=== PATIENT | male | born 1980 | race Two or more races ===

== ENCOUNTER 2024-03-29 11:21 | Emergency (ER) | payer OTHER ==
[~2024-03-29] VITALS: Ht 167.6 cm; Wt 74.8 kg
[2024-03-29] MEDS ORDERED: COZAAR25 MG (12:43)
[2024-03-29] MEDS ORDERED: RAYOS5 MG (12:43)
[2024-03-29] MEDS ORDERED: CELLCEPT500 MG (12:43)
[2024-03-29] MEDS ORDERED: NORFLEX100MG PO (12:52)
[2024-03-29] MEDS ORDERED: ORPHENADRINE CITRATE 30 MG/ML AMPUL IM ONE (13:00)
== END 2024-03-29 13:05 | disposition home or self-care (01) ==
LOC: ER 11:21
DX: M62.830 Muscle spasm of back (principal); Z88.8 Allergy status to other drugs, medicaments and biological substances; Z88.6 Allergy status to analgesic agent
CPT/HCPCS: 96372; 99282; J2360

== ENCOUNTER 2024-04-13 10:23 | Emergency (ER) | payer OTHER ==
[~2024-04-13] VITALS: Ht 167.6 cm; Wt 74.4 kg
[~2024-04-13 10:23] MED LIST: CELLCEPT500 MG; COZAAR25 MG; NORFLEX100MG PO; RAYOS5 MG
[2024-04-13] MEDS ORDERED: ONDANSETRON HCL 2 MG/ML VIAL IM ONE (12:15)
[2024-04-13] MEDS ORDERED: FAMOTIDINE/PF 20 MG/2 ML VIAL IV ONE (12:15)
[2024-04-13 13:17] LABS: HEMATOCRIT 44.6 % (39.0-48.0); HEMOGLOBIN 15.1 g/dL (13-16.00); MEAN CELL VOLUME 92.1 fL (80.0-100.00); MEAN CORPUSCULAR HEMOGLOBIN 31.2 pg (27.00-32.0); MEAN CORPUSCULAR HGB CONC 33.8 g/dl (32.0-36.0); PLATELET COUNT 274 K/uL (150-450); RED BLOOD COUNT 4.84 M/uL (4.00-6.00); RED CELL DISTRIBUTION WIDTH 13.4 % (11.5-14.5)
[2024-04-13 13:32] LABS: URINE APPEARANCE Clear; URINE BILIRRUBIN Negative (NEGATIVE); URINE BLOOD Moderate; URINE COLOR Yellow; URINE GLUCOSE Negative (NEGATIVE); URINE KETONE Negative (NEGATIVE); URINE LEUKOCYTE Negative; URINE NITRATE Negative; URINE UROBILINOGEN 0.2 E.U./dl
[2024-04-13 13:33] LABS: URINE BACTERIA 15.9 uL (0.0-1933); URINE EPITHELIAL CELLS 1.7 uL (0.0-38.8); URINE RBC 6.1 uL (0.0-20.8)
[2024-04-13 13:40] LABS: URINE CAST 0.14 uL (0.0-1.40); URINE PROTEIN 100 (NEGATIVE)
[2024-04-13 13:49] LABS: ALBUMIN 4.1 gm/dL (3.4-5.0); BILIRUBIN TOTAL 0.39 mg/dL (0.3-1.2); CALCIUM 9.3 mg/dL (8.5-10.1); CREATININE SERUM 1.04 mg/dL (0.70-1.30); GFR 77.94; GLOBULINA 3.7 G/DL (2.4-3.5); POTASSIUM 5.88 mEq/L (3.5-5.1); TOTAL PROTEIN 7.8 gm/dL (6.4-8.2)
== END 2024-04-13 14:25 ==
LOC: ER 10:25
PROVIDERS: General Practice
DX: J10.1 Influenza due to other identified influenza virus with other respiratory manifestations (principal); Z93.2 Ileostomy status; Z88.6 Allergy status to analgesic agent; K50.90 Crohn's disease, unspecified, without complications; Z20.822 Contact with and (suspected) exposure to COVID-19
CPT/HCPCS: 36415; 96365; 96372; 99282; J2405; J3490

== ENCOUNTER 2024-04-24 20:29 | Emergency (ER) | payer OTHER ==
[~2024-04-24] VITALS: Ht 167.6 cm; Wt 74.4 kg
[2024-04-24 20:42] VITALS: BP 117/81; O2SAT 97
[2024-04-24 23:10] LABS: HEMATOCRIT 41.9 % (39.0-48.0); HEMOGLOBIN 14.2 g/dL (13-16.00); MEAN CELL VOLUME 92.3 fL (80.0-100.00); MEAN CORPUSCULAR HEMOGLOBIN 31.2 pg (27.00-32.0); MEAN CORPUSCULAR HGB CONC 33.8 g/dl (32.0-36.0); PLATELET COUNT 218 K/uL (150-450); RED BLOOD COUNT 4.53 M/uL (4.00-6.00); RED CELL DISTRIBUTION WIDTH 12.5 % (11.5-14.5)
[2024-04-25] MEDS ORDERED: PHENAGIL TABLE1 EACH PO (02:45)
[2024-04-25] MEDS ORDERED: ALBUTEROL2.5 MG/3 M IH (02:45)
[2024-04-25] MEDS ORDERED: ZYNCOF 20-400120 ML PO (02:45)
== END 2024-04-25 02:54 ==
LOC: ER 20:31
PROVIDERS: Preventive Medicine Public Health & General Preventive Medicine
DX: R53.81 Other malaise (principal); J10.1 Influenza due to other identified influenza virus with other respiratory manifestations; Z20.822 Contact with and (suspected) exposure to COVID-19; Z88.6 Allergy status to analgesic agent

== ENCOUNTER 2025-04-10 15:17 | Emergency (ER) | payer OTHER ==
[~2025-04-10] VITALS: Ht 167.6 cm; Wt 72.6 kg
[~2025-04-10 15:17] MED LIST changes: +ALBUTEROL2.5 MG/3 M IH; +PHENAGIL TABLE1 EACH PO; +ZYNCOF 20-400120 ML PO
[2025-04-10] MEDS ORDERED: GUAIFENESIN 600 MG TABLET.SA PO ONE (18:00)
[2025-04-10] MEDS ORDERED: CEFTRIAXONE SODIUM 1,000 MG VIAL IM ONE (18:00)
[2025-04-10] MEDS ORDERED: ACETAMINOPHEN 325 MG TABLET PO ONE (18:00)
[2025-04-10] MEDS ORDERED: ACETAMINOPHEN 500 MG GEL..CAP PO ONE (18:24)
[2025-04-10] MEDS ORDERED: CEFTRIAXONE SODIUM 1,000 MG VIAL ONE (18:24)
[2025-04-10] MEDS ORDERED: FAMOTIDINE/PF 20 MG/2 ML VIAL ONE (18:24)
[2025-04-10 20:09] LABS: BASO % 0.4 % (0.1-1.2); EOS # 0.08 (0.04-0.54); EOS % 0.8 % (0.7-7.0); LYMPH # 2.37 (1.18-3.74); LYMPH % 25.2 % (19.3-53.1); MEAN PLATELET VOLUME 9.90 fl (9.4-12.4); MONO # 1.06 (0.24-0.82); MONO % 11.3 % (4.7-12.5); NEUT # 5.85 (1.56-6.13); NEUT % 62.1 % (34.0-71.1); RED CELL DISTRIBUTION WIDTH 12.2 % (11.6-14.4)
[2025-04-10 20:32] LABS: ALT/SGPT 51.0 U/L (12-78); AST/SGOT 31.0 U/L (15-37); BILIRUBIN TOTAL 0.33 mg/dL (0.3-1.2); BUN CREA RATIO 15.0 (7.0-25.0); CREATININE SERUM 1.16 mg/dL (0.70-1.30); GFR 68.4; GLOBULINA 3.7 G/DL (2.4-3.5); GLUCOSE FASTING 86.0 mg/dL (65-100); OSMOLALITY SERUM 280.0 MOSM/KG (275-295)
[2025-04-10 21:52] LABS: COVID-19 AG NEGATIVE (NEGATIVE)
== END 2025-04-10 22:37 | disposition home or self-care (01) ==
LOC: ER 15:18
PROVIDERS: General Practice
DX: J10.1 Influenza due to other identified influenza virus with other respiratory manifestations (principal); Z88.6 Allergy status to analgesic agent; K50.90 Crohn's disease, unspecified, without complications; Z93.2 Ileostomy status; Z20.822 Contact with and (suspected) exposure to COVID-19
CPT/HCPCS: 96372; 99282; J0696